=== PATIENT | female | born 1970 | race Caucasian/White ===

== ENCOUNTER 2019-09-01 18:37 | Inpatient (IN) | payer OTHER ==
[~2019-09-01] VITALS: Ht 157.5 cm; Wt 87.5 kg
[~2019-09-01 18:37] MED LIST: LEVAQUIN750 M1 PO; PREDNISONE10 MG PO; SYMBICORT1 AE1 INH; VENTOLIN H0.09 MG/AC INH
[2019-09-01 18:39] VITALS: BP 113/65
[2019-09-01 19:08] VITALS: BP 132/69
[2019-09-01 19:24] VITALS: BP 136/42
[2019-09-01 19:25] LABS: HEMATOCRIT 23.6 % (37.0-47.0); MEAN CELL VOLUME 90.4 fl (81.0-99.0); MEAN CORPUSCULAR HGB 25.7 pg (27.0-31.0); MEAN CORPUSCULAR HGB CONC 28.4 g/dl (33.0-37.0); MEAN PLATELET VOLUME 8.5 fl (9.6-12.3); PLATELET COUNT AUTOMATED 494 10*3/uL (130-400); RED BLOOD COUNT 2.61 10*6/uL (4.10-5.10); RED CELL DISTRI WIDTH 20.4 % (0-14.5); WHITE BLOOD COUNT 8.3 10*3/uL (4.8-10.8)
[2019-09-01 19:31] LABS: HEMOGLOBIN 6.7 g/dl (12.0-16.0)
--- NOTE | 2019-09-01 19:33 | NUR ---
CRITICAL LAB HGB 6.7. DR MOORE INFORMED OF THIS
[2019-09-01 19:39] LABS: ACT PARTIAL THROMBO TIME 26.7 SECONDS (20.0-32.1); INTERNATIONAL NORM RATIO 0.9 (2.0-3.5)
[2019-09-01 19:59] LABS: ALBUMIN 2.1 gm/dl (3.1-4.5); ALKALINE PHOSPHATASE 82 U/L (45-117); BUN 6 mg/dl (7-24); CHLORIDE 102 mmol/L (98-107); CREATININE 0.77 mg/dL (0.55-1.02); POTASSIUM 3.5 mmol/L (3.5-5.1); SGOT/AST 21 IU/L (3-35); SGPT/ALT 21 U/L (12-78); SODIUM 138 mmol/L (136-145); TOTAL PROTEIN 6.4 gm/dL (6.4-8.2)
[2019-09-01 20:04] LABS: TROPONIN I < 0.015 ng/ml (<0.045)
[2019-09-01 20:21] LABS: TOTAL CELLS COUNTED 100 #CELLS
[2019-09-01 20:22] LABS: PLATELET SUFFICIENCY HIGH (NORMAL)
[2019-09-01 20:44] VITALS: BP 128/68
[2019-09-01 21:09] VITALS: BP 102/54
[2019-09-01 22:30] VITALS: BP 131/63
--- NOTE | 2019-09-01 22:34 | NUR ---
A 48, admitted to , under the services of NICK Willis DO with a diagnosis of ANEMIA. Chief complaint is SOB WITH EXERTION. Patient arrived via ambulatory from ER. Monitor applied. Initial assessment completed. Vital signs taken and recorded. NICK WILLIS DO notified of admission to the unit. Orders received. See assessment for past medical history, medications and allergies. Patient and/or family oriented to unit. [facility]. Clothing/patient valuable form completed. RAFAEL ROYAL
[2019-09-01] MEDS ORDERED: SYNTHROID,LEVO88 MCG PO (22:35)
[2019-09-01] MEDS ORDERED: ELIQUIS5 M1 PO (22:36)
[2019-09-01] MEDS ORDERED: COMPAZINE5 M3 PO (22:36)
[2019-09-02] VITALS (12 sets, daily range): BP systolic 92–114; BP diastolic 48–77
--- NOTE | 2019-09-02 02:46 | NUR ---
BLOOD TRANSFUSION STARTED AT THIS TIME. VITALS STABLE.
[2019-09-02 06:53] LABS: HEMATOCRIT 27.9 % (37.0-47.0); HEMOGLOBIN 8.2 g/dl (12.0-16.0)
[2019-09-02 06:54] LABS: BASO % 0.5 % (0.0-1.0); EOS # 0.1 10*3/uL (0.0-0.4); EOS % 1.3 % (1.0-4.0); HEMATOCRIT 27.8 % (37.0-47.0); HEMOGLOBIN 8.2 g/dl (12.0-16.0); LYMPH # 1.2 10*3/uL (1.3-4.4); LYMPH % 13.9 % (27.0-41.0); MEAN CORPUSCULAR HGB 26.5 pg (27.0-31.0); MEAN CORPUSCULAR HGB CONC 29.5 g/dl (33.0-37.0); MEAN PLATELET VOLUME 8.1 fl (9.6-12.3); MONO # 0.7 10*3/uL (0.1-1.0); MONO % 7.6 % (3.0-9.0); NEUT # 6.5 10*3/uL (2.3-7.9); PLATELET COUNT AUTOMATED 434 10*3/uL (130-400); RED BLOOD COUNT 3.09 10*6/uL (4.10-5.10); RED CELL DISTRI WIDTH 18.8 % (0-14.5); WHITE BLOOD COUNT 8.5 10*3/uL (4.8-10.8)
--- NOTE | 2019-09-02 07:20 | NUR ---
ARRIVED ON SHIFT, INTRODUCED TO PATIENT, BEDSIDE REPORT RECEIVED, NO NEEDS VOICED AT THIS TIME, WHITE BOARD UPDATED.
[2019-09-02 07:21] LABS: ALBUMIN 2.1 gm/dl (3.1-4.5); CHLORIDE 100 mmol/L (98-107); POTASSIUM 3.6 mmol/L (3.5-5.1); SGOT/AST 16 IU/L (3-35); SGPT/ALT 22 U/L (12-78); SODIUM 139 mmol/L (136-145)
[2019-09-02 07:29] LABS: ALKALINE PHOSPHATASE 76 U/L (45-117); BUN 4 mg/dl (7-24); CHOLESTEROL 162 mg/dL (<200); CREATININE 0.75 mg/dL (0.55-1.02); HDL CHOLESTEROL 36 mg/dl (40-60); LDL CHOLESTEROL 111 mg/dL (9-159); PHOSPHOROUS 5.1 mg/dL (2.5-4.9); TOTAL PROTEIN 6.2 gm/dL (6.4-8.2); TRIGLYCERIDES 73 mg/dl (<150); VLDL CHOLESTEROL 15 mg/dL (6-40)
--- NOTE | 2019-09-02 07:46 | NUR ---
Shift chart check completed.
--- NOTE | 2019-09-02 09:00 | NUR ---
Studio Operation Engineer in to talk to patient. Patient states lives at home with son. There are few steps in the home. Physician: margaret loya [facility]acy[facility] Home health services: none Patient's level of ADLs: INDEPENDENT Patient has working utilities: all working DME: none Follow-up physician's appointment after d/c: will be made byhospitalist nurse director upon discharge Does patient want to access PORTAL?: no Discharge plan discussed with patient, she states she lives at home with her son, is independent in adls and ambulation, drives, she states she receives chemotherapy infusions every 3 weeks, she states she will return home when medically stable and denies any home needs. ANDERS UMLLEN
--- NOTE | 2019-09-02 18:46 | NUR ---
VIPUL IV PLACED FOR CTA
[2019-09-03] VITALS: BP 95/61
[2019-09-03 06:07] LABS: BASO # 0.1 10*3/uL (0.0-0.1); BASO % 0.6 % (0.0-1.0); EOS # 0.1 10*3/uL (0.0-0.4); EOS % 1.5 % (1.0-4.0); HEMOGLOBIN 8.1 g/dl (12.0-16.0); LYMPH # 1.1 10*3/uL (1.3-4.4); MEAN CORPUSCULAR HGB CONC 28.9 g/dl (33.0-37.0); MEAN PLATELET VOLUME 8.5 fl (9.6-12.3); MONO # 0.6 10*3/uL (0.1-1.0); MONO % 7.5 % (3.0-9.0); NEUT # 6.6 10*3/uL (2.3-7.9); NEUT % 76.9 % (47.0-73.0); PLATELET COUNT AUTOMATED 466 10*3/uL (130-400); RED BLOOD COUNT 3.11 10*6/uL (4.10-5.10); RED CELL DISTRI WIDTH 18.9 % (0-14.5); WHITE BLOOD COUNT 8.6 10*3/uL (4.8-10.8)
[2019-09-03 06:18] LABS: BUN 6 mg/dl (7-24); CHLORIDE 100 mmol/L (98-107); CREATININE 0.73 mg/dL (0.55-1.02); POTASSIUM 3.9 mmol/L (3.5-5.1); SODIUM 140 mmol/L (136-145)
--- NOTE | 2019-09-03 07:15 | NUR ---
ARRIVED ON SHIFT, INTRODUCED TO PATIENT, BEDSIDE REPORT RECEIVED, NO NEEDS VOICED AT THIS TIME. WHITE BOARD UPDATED.
--- NOTE | 2019-09-03 07:55 | NUR ---
Shift chart check completed.
[2019-09-03 08:00] VITALS: BP 85/40
--- NOTE | 2019-09-03 09:00 | NUR ---
case management visits with patient, she states she would be discharged home today and denies any home needs
--- NOTE | 2019-09-03 09:16 | NUR ---
Nutritional Support Services Note: Pt is eating well, 100% of regular diet as ordered. Ht.5'2 Wt.193#. IBW 100-120. Wt has been stable. Dx of anemia, hx of lung CA. Encouraged healthy eating. Will follow if needed. Ekaterina Hernandez Rdn Ld
--- NOTE | 2019-09-03 10:15 | NUR ---
Discharge instructions reviewed with patient. Patient receptive and verbalizes understanding. Follow-up care arranged. Written instructions given to patient, IV REMOVED, MEDICATIONS FROM PHARMACY RETURNED TO PATIENT.PATIENT TAKEN VIA W/C TO [facility], SHE HAD CALLED A CAB. ANA LUISA DA SILVA
== END 2019-09-03 10:15 | disposition home or self-care (01) | DRG 660 ==
LOC: ED 18:37 → 4E 21:52 → EDHOLD 21:52 → 4E 22:03
PROVIDERS: Emergency Medicine; Internal Medicine; Student in an Organized Health Care Education/Training Program; ADMIT Family Medicine
PROC: 30233N1 Transfusion of Nonautologous Red Blood Cells into Peripheral Vein, Percutaneous Approach (ICD-10-PCS; principal; 2019-09-02)
DX: D61.1 Drug-induced aplastic anemia (principal); R65.11 Systemic inflammatory response syndrome (SIRS) of non-infectious origin with acute organ dysfunction; E43 Unspecified severe protein-calorie malnutrition; I27.82 Chronic pulmonary embolism; E11.65 Type 2 diabetes mellitus with hyperglycemia; J98.6 Disorders of diaphragm; C34.90 Malignant neoplasm of unspecified part of unspecified bronchus or lung; E03.9 Hypothyroidism, unspecified; J44.9 Chronic obstructive pulmonary disease, unspecified; E66.9 Obesity, unspecified; D47.3 Essential (hemorrhagic) thrombocythemia; Z88.1 Allergy status to other antibiotic agents; Z91.040 Latex allergy status; Z98.51 Tubal ligation status; Z83.49 Family history of other endocrine, nutritional and metabolic diseases; Z80.9 Family history of malignant neoplasm, unspecified; Z79.899 Other long term (current) drug therapy

== ENCOUNTER 2020-01-06 10:36 | Emergency (ER) | payer OTHER ==
[~2020-01-06 10:36] MED LIST changes: +COMPAZINE5 M3 PO; +ELIQUIS5 M1 PO; +SYNTHROID,LEVO88 MCG PO
[2020-01-06 11:41] LABS: BASO % 0.4 % (0.0-1.0); EOS # 0.1 10*3/uL (0.0-0.4); EOS % 0.7 % (1.0-4.0); HEMATOCRIT 33.8 % (37.0-47.0); HEMOGLOBIN 10.1 g/dl (12.0-16.0); LYMPH % 10.4 % (27.0-41.0); MEAN CELL VOLUME 84.1 fl (81.0-99.0); MEAN CORPUSCULAR HGB 25.1 pg (27.0-31.0); MEAN CORPUSCULAR HGB CONC 29.9 g/dl (33.0-37.0); MEAN PLATELET VOLUME 8.1 fl (9.6-12.3); MONO # 0.3 10*3/uL (0.1-1.0); MONO % 3.2 % (3.0-9.0); NEUT # 8.3 10*3/uL (2.3-7.9); NEUT % 84.7 % (47.0-73.0); PLATELET COUNT AUTOMATED 341 10*3/uL (130-400); RED BLOOD COUNT 4.02 10*6/uL (4.10-5.10); RED CELL DISTRI WIDTH 20.1 % (0-14.5); WHITE BLOOD COUNT 9.7 10*3/uL (4.8-10.8)
[2020-01-06 11:51] LABS: ACT PARTIAL THROMBO TIME 28.8 SECONDS (20.0-32.1); INTERNATIONAL NORM RATIO 0.9 (2.0-3.5)
[2020-01-06 12:02] LABS: ALBUMIN 3.1 gm/dl (3.1-4.5); ALKALINE PHOSPHATASE 69 U/L (45-117); BUN 7 mg/dl (7-24); CHLORIDE 97 mmol/L (98-107); CREATININE 0.79 mg/dL (0.55-1.02); SGOT/AST 27 IU/L (3-35); SGPT/ALT 50 U/L (12-78); SODIUM 131 mmol/L (136-145); TOTAL PROTEIN 7.4 gm/dL (6.4-8.2)
[2020-01-06 12:06] LABS: TROPONIN I < 0.015 ng/ml (<0.045)
[2020-01-06 12:38] LABS: BILIRUBIN NEGATIVE (NEGATIVE); BLOOD TRACE-INTACT (NEGATIVE); CLARITY SL CLOUDY (CLEAR); COLOR YELLOW (YELLOW); GLUCOSE NEGATIVE (NEGATIVE); KETONE NEGATIVE (NEGATIVE)
[2020-01-06 12:39] LABS: LEUKO ESTERASE 2+ (NEGATIVE); NITRITE NEGATIVE (NEGATIVE); UROBILINOGEN 0.2 E.U./dl (0.2-1.0)
[2020-01-06] MEDS ORDERED: DOXYCYCLINE100 M3 PO (14:15)
== END 2020-01-06 14:55 | disposition home or self-care (01) ==
LOC: ED 10:36
PROVIDERS: Nurse Practitioner Family
DX: L08.9 Local infection of the skin and subcutaneous tissue, unspecified (principal); M79.644 Pain in right finger(s); Z79.899 Other long term (current) drug therapy

== ENCOUNTER 2020-05-06 02:34 | Emergency (ER) | payer OTHER ==
[~2020-05-06] VITALS: Wt 93.0 kg
[~2020-05-06 02:34] MED LIST changes: +DOXYCYCLINE100 M3 PO
[2020-05-06 02:53] LABS: MEAN CELL VOLUME 107.2 fl (81.0-99.0); MEAN CORPUSCULAR HGB 29.6 pg (27.0-31.0); MEAN CORPUSCULAR HGB CONC 27.6 g/dl (33.0-37.0); NUCLEATED RED BLOOD CELL 0.1 10*3/uL (0.0-0.0); NUCLEATED RED BLOOD CELL 0.4 % (0.0-0.0); PLATELET COUNT AUTOMATED 540 10*3/uL (130-400); RED BLOOD COUNT 3.45 10*6/uL (4.10-5.10); RED CELL DISTRI WIDTH 15.4 % (0-14.5); WHITE BLOOD COUNT 15.1 10*3/uL (4.8-10.8)
[2020-05-06 03:09] LABS: ALBUMIN 2.4 gm/dl (3.1-4.5); CREATININE 1.55 mg/dL (0.55-1.02); POTASSIUM 3.2 mmol/L (3.5-5.1); TOTAL PROTEIN 6.1 gm/dL (6.4-8.2)
[2020-05-06 03:12] LABS: TROPONIN I 1.63 ng/ml (<0.045)
[2020-05-06 03:18] LABS: BURR CELLS FEW; PLATELET SUFFICIENCY HIGH (NORMAL); TOTAL CELLS COUNTED 100 #CELLS
[2020-05-06 04:10] LABS: ARTERIAL BLOOD GAS PH 6.961 (7.35-7.45)
[2020-05-06 04:11] LABS: ABG BASE EXCESS -13.5 mmol/L (-2.0-2.0)
[2020-05-06 06:03] LABS: ARTERIAL BLOOD GAS PH 7.091 (7.35-7.45)
[2020-05-06 09:13] LABS: HEMATOCRIT 34.1 % (37.0-47.0); MEAN CORPUSCULAR HGB 29.1 pg (27.0-31.0); MEAN CORPUSCULAR HGB CONC 28.4 g/dl (33.0-37.0); MEAN PLATELET VOLUME 8.6 fl (9.6-12.3); NUCLEATED RED BLOOD CELL 0.2 10*3/uL (0.0-0.0); NUCLEATED RED BLOOD CELL 0.6 % (0.0-0.0); PLATELET COUNT AUTOMATED 480 10*3/uL (130-400); RED BLOOD COUNT 3.33 10*6/uL (4.10-5.10); RED CELL DISTRI WIDTH 15.6 % (0-14.5); WHITE BLOOD COUNT 31.1 10*3/uL (4.8-10.8)
[2020-05-06 09:14] LABS: MEAN CELL VOLUME 102.4 fl (81.0-99.0)
[2020-05-06 09:19] LABS: CREATININE 1.71 mg/dL (0.55-1.02); POTASSIUM 3.4 mmol/L (3.5-5.1)
[2020-05-06 09:23] LABS: ACANTHOCYTES FEW; BURR CELLS FEW; PLATELET SUFFICIENCY HIGH (NORMAL); POLYCHROMASIA SLIGHT; TOTAL CELLS COUNTED 100 #CELLS; VACUOLATION OF NEUTROPHILS SLIGHT
[2020-05-06 10:00] LABS: ARTERIAL BLOOD GAS PH 7.25 (7.35-7.45)
[2020-05-06 10:01] LABS: ABG BASE EXCESS -5.3 mmol/L (-2.0-2.0)
== END 2020-05-06 10:09 | disposition short-term general hospital (02) ==
LOC: ED 02:34
PROVIDERS: Emergency Medicine
DX: I46.9 Cardiac arrest, cause unspecified (principal); R79.89 Other specified abnormal findings of blood chemistry; J44.9 Chronic obstructive pulmonary disease, unspecified; E03.9 Hypothyroidism, unspecified; E66.9 Obesity, unspecified; Z88.1 Allergy status to other antibiotic agents; Z68.39 Body mass index [BMI] 39.0-39.9, adult; Z79.899 Other long term (current) drug therapy; Z87.891 Personal history of nicotine dependence